=== PATIENT | female | born 1970 | race Caucasian/White ===

== ENCOUNTER 2018-11-26 09:03 | Day surgery (SDC) | payer MEDICARE, MEDICAID ==
[~2018-11-26] VITALS: Ht 177.8 cm; Wt 99.3 kg
[2018-11-26 10:22] VITALS: BP 151/86; PULSE 69; TEMP 98
[2018-11-26] MEDS ORDERED: COLACE 100100 MG/CAP PO (10:31)
[2018-11-26] MEDS ORDERED: PROZAC 10MG10 MG PO (10:31)
[2018-11-26] MEDS ORDERED: LIPITOR 40MG TA40 MG PO (10:38)
[2018-11-26] MEDS ORDERED: ZYRTEC 10MG10 MG PO (10:39)
[2018-11-26] MEDS ORDERED: SINGULAIR 110 MG/TAB PO (10:39)
[2018-11-26] MEDS ORDERED: TROKEND100 PO (10:39)
[2018-11-26] MEDS ORDERED: SYNTHROID0.137 MG PO (10:40)
[2018-11-26] MEDS ORDERED: LASIX 20MG TABL20 MG PO (10:40)
[2018-11-26] MEDS ORDERED: PROTONIX 40MG T40 MG PO (10:41)
[2018-11-26] MEDS ORDERED: ALDACTONE50 MG PO (10:42)
[2018-11-26] MEDS ORDERED: INDERAL80 MG PO (10:43)
[2018-11-26] MEDS ORDERED: CARAFATE 1GM1 G PO (10:44)
[2018-11-26] MEDS ORDERED: TEGRETOL 2200 MG/TA1 PO (10:44)
[2018-11-26] MEDS ORDERED: ZANTAC 150MG T150 MG PO (10:45)
--- NOTE | 2018-11-26 12:30 | NUR ---
Pt returns from endo procedure via cart. Pt ambulates from cart to recliner without complications. Monitors on and alarms set. Call light within reach. Mom present in room. Report received from MEKHI Kendall. Pt requesting Sprite. Pt denies any pain or nausea.
[2018-11-26 12:31] VITALS: BP 156/86; PULSE 70; TEMP 97
--- NOTE | 2018-11-26 12:40 | NUR ---
Pt taking drink well. No complaints voiced by patient or Mom.
[2018-11-26 12:45] VITALS: BP 143/82; PULSE 62
[2018-11-26 13:00] VITALS: BP 146/85; PULSE 64
--- NOTE | 2018-11-26 13:20 | NUR ---
Discharge instructions given to patient and Mom. All questions answered to their satisfaction. Handed to them are a thank you card, discharge instructions, diagnosis information, a discharge med sheet, and procedural photos.
--- NOTE | 2018-11-26 13:45 | NUR ---
Follow-up appointment scheduled at [facility] instead of [facility] due to no available appointments. Directions provided and printed for patient and Mom.
--- NOTE | 2018-11-26 14:00 | NUR ---
Pt transferred out of hospital via wheelchair and this RN to private vehicle driven by Mom.
== END 2018-11-26 14:00 | disposition home or self-care (01) ==
LOC: SDCO 09:03
DX: K21.9 Gastro-esophageal reflux disease without esophagitis (principal); K44.9 Diaphragmatic hernia without obstruction or gangrene; K29.30 Chronic superficial gastritis without bleeding; Z90.49 Acquired absence of other specified parts of digestive tract; G40.909 Epilepsy, unspecified, not intractable, without status epilepticus
CPT/HCPCS: J2704; J7030